=== PATIENT | male | born 1960 | race Caucasian/White ===

== ENCOUNTER 2017-07-13 18:59 | Inpatient (IN) | payer MEDICARE, OTHER ==
--- NOTE | 2017-07-13 20:08 | C.PDOC ---
History Of Present Illness 56 y/o M c PMHx back pain and multiple surgeries p/w jaundice x 1 day. Patient notes he has been feeling weak for a few days, now with itchy and yellow skin x 1 day. Denies fever, chills, abdominal pain, vomiting, diarrhea. Denies significant acetaminophen use, alcohol use, recent travel. Time Seen by Provider: 07/13/17 19:50 Chief Complaint (Nursing): Weakness/Neurological Deficit Past Medical History Vital Signs: Last Vital Signs Temp 98.3 F 07/13/17 19:07 Pulse 129 H 07/13/17 19:07 Resp 18 07/13/17 19:07 BP 125/95 H 07/13/17 19:07 Pulse Ox 98 07/13/17 20:08 Family History: States: No Known Family Hx - Social History Hx Alcohol Use: No Hx Substance Use: Yes - Immunization History Hx Tetanus Toxoid Vaccination: No Hx Influenza Vaccination: No Hx Pneumococcal Vaccination: No Review Of Systems Except As Marked, All Systems Reviewed And Found Negative. Constitutional: Negative for: Fever Gastrointestinal: Negative for: Abdominal Pain Physical Exam - Physical Exam Additional Physical Exam Comments: Constitutional: No acute distress. Head: Normocephalic. Atraumatic. Eyes: PERRL. Scleral icterus. ENT: Moist mucous membranes. Neck: Supple. Cardiovascular: Regular rate at bedside. Radial pulses 2+ bilaterally. Chest: No tenderness. Respiratory: Clear to auscultation bilaterally. GI: Soft. Nontender. Nondistended. Back: No CVA tenderness. Musculoskeletal: No tenderness or swelling of extremities. Skin: Jaundiced. Neurologic: Alert, no focal deficit. ED Course And Treatment - Laboratory Results Result Diagrams: 07/13/17 20:55 07/13/17 20:53 O2 Sat by Pulse Oximetry: 98 Medical Decision Making Medical Decision Making: EKG NSR 90 bpm, no ST/T wave changes. CXR no acute disease. FINDINGS: Lower thorax: No acute findings. ABDOMEN: Liver: Small simple cysts present in the patient's liver. Gallbladder and bile ducts: The gallbladder is contracted but otherwise normal. Pancreas: Unremarkable. No mass. No ductal dilation. Spleen: Unremarkable. No splenomegaly. Adrenals: Unremarkable. No mass. Kidneys and ureters: A simple cyst is identified in the patient's left kidney. Kidneys otherwise show no significant abnormalities. No hydronephrosis Stomach and bowel: Bowel loops appear within normal limits, no signs of wall thickening, mucosal edema, or bowel distention. Moderate amount of formed fecal material is seen within the large bowel loops which may be associated with constipation. Appendix: A normal appendix seen in the right lower quadrant. PELVIS: Bladder: Unremarkable. No mass. Reproductive: Unremarkable as visualized. ABDOMEN and PELVIS: Intraperitoneal space: Unremarkable. No free air. No significant fluid collection. Bones/joints: Surgical changes are incidentally noted in the lower lumbar spine. No acute fracture. No dislocation. Soft tissues: Bilateral very small fat-containing inguinal hernias are present. Vasculature: The aorta demonstrates moderate atherosclerotic calcification. No abdominal aortic aneurysm. Lymph nodes: Unremarkable. No enlarged lymph nodes. IMPRESSION: No evidence for bowel herniation, bowel obstruction, colitis, appendicitis or diverticulitis. No gross ureteral stone or obstructive uropathy is visualized. Small simple cyst of left kidney as described. Benign simple hepatic cysts. Postsurgical changes of the lumbar spine. Dr. Trivedi accepts patient to his service and recommends Dr. Chase for GI consultation. Disposition Discussed With : Gloria Trivedi Doctor Will See Patient In The: Hospital - Disposition Disposition: HOSPITALIZED Disposition Time: 22:36 Condition: FAIR Forms: [facility] [employer] [facility] (Bulgarian) - Clinical Impression Clinical Impression: Hyperbilirubinemia
[2017-07-13 21:03] LABS: BASO # 0.1 K/uL (0.0-0.2); BASO % 0.8 % (0.0-2.0); EOS % 10.4 % (0.0-4.0); HEMATOCRIT 44.2 % (35.0-51.0); LYMPH # 1.6 K/uL (1.0-4.3); LYMPH % 15.6 % (20.0-40.0); MEAN CELL VOLUME 94.1 fL (80.0-94.0); MEAN CORPUSCULAR HEMOGLOBIN 32.2 pg (27.0-31.0); MEAN CORPUSCULAR HGB CONC 34.2 g/dL (33.0-37.0); MONO % 10.3 % (0.0-10.0); NRBC % 0.2 % (0.0-2.0); RED CELL DISTRIBUTION WIDTH 14.1 % (11.5-14.5); WHITE BLOOD COUNT 10.1 K/uL (4.8-10.8)
[2017-07-13 21:11] LABS: RBC URINE 1 /hpf (0-3); URINE BACTERIA RARE (<OCC); URINE BILIRUBIN 2+ (NEGATIVE); URINE BLOOD NEGATIVE (NEGATIVE); URINE COLOR Amber (YELLOW); URINE GLUCOSE (UA) NORMAL (Normal); URINE KETONE TRACE mg/dL (NEGATIVE); URINE LEUKOCYTE ESTERASE NEG Leu/uL (Negative); URINE PROTEIN NEGATIVE (NEGATIVE); WBC URINE 2 /hpf (0-5)
[2017-07-13 21:12] LABS: CHLORIDE 102 mmol/L (98-107); POTASSIUM 4.1 mmol/L (3.6-5.2); SODIUM 139 mmol/L (132-148)
[2017-07-13 21:14] LABS: ALB/GLOB RATIO 1.1 (1.0-2.1); BILIRUBIN,DIRECT 6.9 mg/dL (0.0-0.4); BILIRUBIN,TOTAL 8.3 mg/dL (0.2-1.3); CARBON DIOXIDE 23 mmol/L (22-30); GFR AFRICAN-AMERICAN > 60; TOTAL PROTEIN 8.2 g/dL (6.3-8.3)
[2017-07-13 21:15] LABS: ALKALINE PHOSPHATASE 468 U/L (38-126); ALT/SGPT 546 U/L (21-72); AST/SGOT 284 U/L (17-59); BLOOD UREA NITROGEN 8 mg/dL (9-20); CALCIUM 9.5 mg/dl (8.6-10.4); GLUCOSE,RANDOM 105 mg/dL (75-110)
[2017-07-13] MEDS ORDERED: Iohexol 300 100 ML IJ ONE (21:36)
[2017-07-14] MEDS: Sodium Chloride 0.9% 1,000 ML IV SCH ×2 (00:51→16:24)
--- NOTE | 2017-07-14 08:05 | RAD ---
HISTORY: jaundice COMPARISON: No prior. TECHNIQUE: Chest PA and lateral FINDINGS: LUNGS: No active pulmonary disease. PLEURA: No significant pleural effusion identified. No pneumothorax apparent. CARDIOVASCULAR: Normal. OSSEOUS STRUCTURES: No significant abnormalities. VISUALIZED UPPER ABDOMEN: Normal. OTHER FINDINGS: None. IMPRESSION: No acute cardiopulmonary disease identified.
--- NOTE | 2017-07-14 08:56 | CT ---
PROCEDURE: CT Abdomen and Pelvis with contrast HISTORY: jaundice COMPARISON: None available. TECHNIQUE: Contrast dose: 100 mL Omnipaque 300 Radiation dose: Total exam DLP = 582.11 mGy-cm. This CT exam was performed using one or more of the following dose reduction techniques: Automated exposure control, adjustment of the mA and/or kV according to patient size, and/or use of iterative reconstruction technique. FINDINGS: LOWER THORAX: No visible consolidation, pleural effusion, or pneumothorax. LIVER: Numerous too small to characterize hepatic hypodensities ; statistically likely cysts or hemangiomas. 13 mm hypodense lesion with in the anterior right hepatic lobe, indeterminate. GALLBLADDER AND BILE DUCTS: Contracted gallbladder appears otherwise unremarkable. PANCREAS: Unremarkable. SPLEEN: Unremarkable. ADRENALS: Unremarkable. KIDNEYS AND URETERS: The kidneys enhance symmetrically. No hydronephrosis or obstructing calculus identified. 10 mm hypodense lesion within the left upper pole, likely cyst. VASCULATURE: Moderate atherosclerotic calcifications of the aorta. No aortic aneurysm. BOWEL: Stomach is nondistended. Lack of oral contrast limits evaluation for bowel pathology. Bowel loops appear within normal limits of caliber without evidence of obstruction. Moderate constipation. APPENDIX: The appendix appears within normal limits of caliber. No secondary signs of acute appendicitis. PERITONEUM: No significant free fluid. No definite free air. LYMPH NODES: Retroperitoneal adenopathy measuring up to 12 mm in short axis. BLADDER: Under distended urinary bladder limits evaluation. REPRODUCTIVE: Unremarkable. BONES: Postsurgical changes with evidence of anterior posterior fusion of the lower lumbar spine. OTHER FINDINGS: Small bilateral fat containing inguinal hernias. Tiny fat containing umbilical hernia. IMPRESSION: 13 mm hypodense lesion within the anterior right hepatic lobe, indeterminate. Dedicated cross-sectional imaging may be considered for further evaluation if indicated. Numerous additional too small to characterize hepatic hypodensities, statistically likely cysts or hemangiomas. Hepatic steatosis. 10 mm hypodense lesion within the left upper pole, likely cyst. Retroperitoneal adenopathy measuring up to 12 mm in short axis. Moderate constipation. Small bilateral fat containing inguinal hernias. Tiny fat containing umbilical hernia. Additional findings as above. Preliminary impression was provided by virtual radiologic. Study has been marked for PA review.
--- NOTE | 2017-07-14 09:50 | US ---
HISTORY: jaundice, eval for gallstones, cbd, liver COMPARISON: CT abdomen and pelvis with contrast performed 07/13/17 TECHNIQUE: Sonographic evaluation of the right upper quadrant of the abdomen. FINDINGS: LIVER: Measures 18.1 cm in length. Echogenic liver may be seen in setting of hepatic parenchymal disease or fatty infiltration. At least 3 hepatic anechoic lesions compatible with cysts within the liver (2 in the right hepatic lobe and 1 in the left hepatic lobe). The 2 cysts identified within the right hepatic lobe appears septated and measure maximally approximately 1.6 cm and 1.1 cm. Left hepatic lobe cyst measures approximately 1 cm. The main portal vein appears patent with normal directional flow. No intrahepatic bile duct dilatation. GALLBLADDER: No gallstones. No gallbladder wall thickening or pericholecystic edema. Negative sonographic Fermin's sign as assessed by the mechanical engineering officer. COMMON BILE DUCT: Measures 6 mm. PANCREAS: Not well-visualized. RIGHT KIDNEY: Measures 10.7 x 4.0 x 4.5 cm. No obstructing calculus or hydronephrosis. AORTA: Limited visualization appears grossly unremarkable. IVC: Limited visualization appears grossly unremarkable. OTHER FINDINGS: None . IMPRESSION: Echogenic liver may be seen in setting of hepatic parenchymal disease or fatty infiltration. Evidence of 3 hepatic cysts, 2 within the right lobe which appear septated.
--- NOTE | 2017-07-14 10:38 | CP.PCM.CON ---
History of Present Illness - History of Present Illness History of Present Illness: Patient is a 56 year old male with past medical history of chronic back pain, who presents to the ED for "itchy yellow" skin for 3 days. Patient reports "having a cold" 3 weeks ago, was treated for a URI with amoxicillin. He reports he went back to the walk-in clinic because the antibiotics did not work, therefore they gave him more medication. Since Monday, has noticed his skin was yellow and itchy. He has felt generalized weakness and had night sweats for the past few weeks. He also notes having "blood orange" urine for 3-4 days and sims stool yesterday. Patient states he has had 1 previous episode of "yellow skin about 15 years ago". Patient was consulted for hyperbilirubinemia. In the ED, total, direct bilirubin, AST and ALT were found to be elevated. Patient denies having chest pain, abdominal pain, nausea, vomiting, fevers, and headaches. PMD: denies PMHx: chronic back pain PSHx: Back surgery, 1997, 2008, 2009 FamHx: unknown. orphan SocHx: tobacco use: former smoker (1/2ppd x20 yrs); social alcohol use; denies drug use; , lives with Allergies: NKDA Medications: denies Review of Systems - Constitutional Constitutional: Lethargy, Night Sweats, Weakness. absent: Fever, Headache - EENT Eyes: absent: Change in Vision Ears: absent: Dizziness - Cardiovascular Cardiovascular: absent: Chest Pain, Dyspnea, Edema, Lightheadedness - Respiratory Respiratory: absent: Dyspnea - Gastrointestinal Gastrointestinal: absent: Abdominal Pain, Constipation, Diarrhea, Nausea, Vomiting Additional comments: 1 episode of "sims stool" - Genitourinary Genitourinary: Hematuria. absent: Dysuria - Musculoskeletal Musculoskeletal: Back Pain (Chronic) - Integumentary Integumentary: Pruritus, Jaundice - Neurological Neurological: Weakness. absent: Headaches Past Patient History - Past Medical History & Family History Past Medical History?: Yes - Past Social History Smoking Status: Former Smoker - CARDIAC Hx Cardiac Disorders: No - PULMONARY Hx Respiratory Disorders: No - NEUROLOGICAL Hx Neurological Disorder: No - HEENT Hx HEENT Problems: No - RENAL Hx Chronic Kidney Disease: No - ENDOCRINE/METABOLIC Hx Endocrine Disorders: No - HEMATOLOGICAL/ONCOLOGICAL Hx Blood Disorders: No - INTEGUMENTARY Hx Dermatological Problems: No - MUSCULOSKELETAL/RHEUMATOLOGICAL Hx Falls: No - GASTROINTESTINAL Hx Gastrointestinal Disorders: No - GENITOURINARY/GYNECOLOGICAL Hx Genitourinary Disorders: No - PSYCHIATRIC Hx Substance Use: Yes (marijuana) - SURGICAL HISTORY Hx Surgeries: Yes Other/Comment: Back surgeries-multiple - ANESTHESIA Hx Anesthesia: Yes Hx Anesthesia Reactions: No Hx Malignant Hyperthermia: No Has any member of the family had a problem w/ anesthesia?: No Meds Allergies/Adverse Reactions: Allergies Allergy/AdvReac Type Severity Reaction Status Date / Time No Known Allergies Allergy Verified 07/13/17 19:11 - Medications Medications: Current Medications Sodium Chloride (Sodium Chloride 0.9%) 1,000 mls @ 75 mls/hr IV .[id number] GISELL Last Admin: 07/14/17 00:51 Dose: 75 mls/hr Pneumococcal Polyvalent Vaccine (Pneumovax 23 Vaccine) 0.5 ml IM .ONCE ONE Stop: 07/16/17 10:01 Physical Exam - Head Exam Head Exam: ATRAUMATIC, NORMOCEPHALIC - Eye Exam Eye Exam: EOMI, Scleral icterus - ENT Exam ENT Exam: Mucous Membranes Moist - Respiratory Exam Respiratory Exam: Clear to Auscultation Bilateral. absent: Rales, Rhonchi, Wheezes - Cardiovascular Exam Cardiovascular Exam: REGULAR RHYTHM, +S1, +S2 - GI/Abdominal Exam GI & Abdominal Exam: Normal Bowel Sounds, Soft. absent: Distended, Mass, Tenderness - Extremities Exam Extremities exam: Negative for: pedal edema, tenderness - Neurological Exam Neurological exam: Alert, Oriented x3 - Psychiatric Exam Psychiatric exam: Normal Affect, Normal Mood - Skin Skin Exam: Dry, Intact, Warm Additional comments: Jaundiced Results - Vital Signs Recent Vital Signs: Last Vital Signs Temp 97.5 F L 07/14/17 08:00 Pulse 75 07/14/17 08:00 Resp 20 07/14/17 08:00 BP 132/81 07/14/17 08:00 Pulse Ox 97 07/14/17 08:00 - Labs Result Diagrams: 07/13/17 20:55 07/13/17 20:53 Assessment & Plan - Assessment and Plan (Free Text) Assessment: 56 year old male with past medical history of chronic back pain, consulted for hyperbilirubinemia. - No surgical intervention at this time. Will follow peripherally. - Jaundice possibly secondary to hepatitis, unknown etiology; ?viral vs. autoimmune. - Follow up labs. - Continue management as per GI.
--- NOTE | 2017-07-14 10:49 | CP.PCM.CON ---
<Marilyn Saldivar - Last Filed: 07/14/17 11:33> History of Present Illness - History of Present Illness History of Present Illness: GI Fellow PGY4 Consult Note This is a 56yM with a pmhx of chronic back pain, who presents to the ED for itchy yellow skin for two days. Patient reports having a URI 3 weeks ago and was treated with multiple medications including amoxicillin. He reports he will try to get the names of the other medications from his and let us know. Pt reports feeling weak and had night sweats for 4 days having to change his shirt and bedsheets multiple times. He also notes having blood orange urine for 3-4 days and sims stool yesterday. Pt denies prior history of jaundice and no hx of hepatitis, recent travel or sick contacts. Pt denies any alcohol abuse and does not know family history. Pt reports getting tattoos 30yrs ago from a shop with clean needles. Pt denies abdominal pain, nausea, vomiting, fevers, or chills. ROS: A 12pt ROS was obtained and was negative except as above PmHx: Back pain/spinal stenosis PsHx: Back surgery, 1997, 2008, 2009 FHx: unknown. orphan SHx: former smoker 6 cigarets for 20 yrs quit 10yrs ago; social alcohol use; denies drug use Past Patient History - Past Medical History & Family History Past Medical History?: Yes - Past Social History Smoking Status: Former Smoker - CARDIAC Hx Cardiac Disorders: No - PULMONARY Hx Respiratory Disorders: No - NEUROLOGICAL Hx Neurological Disorder: No - HEENT Hx HEENT Problems: No - RENAL Hx Chronic Kidney Disease: No - ENDOCRINE/METABOLIC Hx Endocrine Disorders: No - HEMATOLOGICAL/ONCOLOGICAL Hx Blood Disorders: No - INTEGUMENTARY Hx Dermatological Problems: No - MUSCULOSKELETAL/RHEUMATOLOGICAL Hx Falls: No - GASTROINTESTINAL Hx Gastrointestinal Disorders: No - GENITOURINARY/GYNECOLOGICAL Hx Genitourinary Disorders: No - PSYCHIATRIC Hx Substance Use: Yes (marijuana) - SURGICAL HISTORY Hx Surgeries: Yes Other/Comment: Back surgeries-multiple - ANESTHESIA Hx Anesthesia: Yes Hx Anesthesia Reactions: No Hx Malignant Hyperthermia: No Has any member of the family had a problem w/ anesthesia?: No Meds Allergies/Adverse Reactions: Allergies Allergy/AdvReac Type Severity Reaction Status Date / Time No Known Allergies Allergy Verified 07/13/17 19:11 - Medications Medications: Current Medications Sodium Chloride (Sodium Chloride 0.9%) 1,000 mls @ 75 mls/hr IV .[id number] GISELL Last Admin: 07/14/17 00:51 Dose: 75 mls/hr Pneumococcal Polyvalent Vaccine (Pneumovax 23 Vaccine) 0.5 ml IM .ONCE ONE Stop: 07/16/17 10:01 Physical Exam - Constitutional Appears: No Acute Distress - Head Exam Head Exam: ATRAUMATIC, NORMAL INSPECTION, NORMOCEPHALIC - Eye Exam Eye Exam: EOMI, PERRL, Scleral icterus Pupil Exam: PERRL - ENT Exam ENT Exam: Mucous Membranes Moist Additional comments: Jaundice under the tongue - Neck Exam Neck exam: Positive for: Full Rom, Normal Inspection - Respiratory Exam Respiratory Exam: Clear to Auscultation Bilateral, NORMAL BREATHING PATTERN - Cardiovascular Exam Cardiovascular Exam: RRR, +S1, +S2 - GI/Abdominal Exam GI & Abdominal Exam: Normal Bowel Sounds, Soft. absent: Distended, Guarding, Organomegaly, Rebound, Rigid, Tenderness - Rectal Exam Rectal Exam: Deferred - Extremities Exam Extremities exam: Positive for: full ROM, normal inspection - Back Exam Back exam: NORMAL INSPECTION - Neurological Exam Neurological exam: Alert, Normal Gait, Oriented x3 - Psychiatric Exam Psychiatric exam: Normal Affect, Normal Mood - Skin Skin Exam: Dry, Intact, Warm Additional comments: Jaundice Results - Vital Signs Recent Vital Signs: Last Vital Signs Temp 97.5 F L 07/14/17 08:00 Pulse 75 07/14/17 08:00 Resp 20 07/14/17 08:00 BP 132/81 07/14/17 08:00 Pulse Ox 97 07/14/17 08:00 - Labs Result Diagrams: 07/13/17 20:55 07/13/17 20:53 Assessment & Plan - Assessment and Plan (Free Text) Assessment: This is a 56yM pw painless jaundice for 2 days. 1. Painless Jaundice 2. Hyperbilirubinemia 3. Transaminitis Plan: -Continue supportive care with IVF hydration -Will order STAT Abdominal US to r/o cholilithiasis, choledocohlithiasis, evaluate CBD -Order further work up for transaminitis with autoimmune labs, hepatitis panel, acetaminophen level, and iron studies -Abnormal LFTs may also be from medication side effects causing cholestasis, waiting on pt's medication list from recent URI -NPO -Plan for EUS with possible ERCP today -Will continue to follow pt closely and make further recommendations based on endoscopic evaluation <Gregorio Calix - Last Filed: 07/14/17 12:29> Meds - Medications Medications: Current Medications Sodium Chloride (Sodium Chloride 0.9%) 1,000 mls @ 75 mls/hr IV .[id number] GISELL Last Admin: 07/14/17 00:51 Dose: 75 mls/hr Pneumococcal Polyvalent Vaccine (Pneumovax 23 Vaccine) 0.5 ml IM .ONCE ONE Stop: 07/16/17 10:01 Results - Vital Signs Recent Vital Signs: Last Vital Signs Temp 97.5 F L 07/14/17 08:00 Pulse 75 07/14/17 08:00 Resp 20 07/14/17 08:00 BP 132/81 07/14/17 08:00 Pulse Ox 97 07/14/17 08:00 - Labs Result Diagrams: 07/14/17 11:34 07/14/17 11:34 Labs: Laboratory Results - last 24 hr 07/14/17 07/14/17 07/14/17 11:34 11:34 11:34 WBC 7.7 RBC 4.51 Hgb 14.7 Hct 42.7 MCV 94.6 H MCH 32.6 H MCHC 34.5 RDW 14.1 Plt Count 397 MPV 8.2 PT INR Sodium 140 Potassium 4.0 Chloride 104 Carbon Dioxide 23 Anion Gap 17 BUN 8 L Creatinine 0.8 Est GFR ( Amer) > 60 Est GFR (Non-Af Amer) > 60 Random Glucose 103 Calcium 9.4 Iron 168 TIBC 397 % Saturation 42 Total Bilirubin 8.7 H AST 364 H D ALT 548 H Alkaline Phosphatase 500 H Total Protein 7.9 Albumin 4.0 Globulin 3.9 Albumin/Globulin Ratio 1.0 Acetaminophen IgG 07/14/17 07/14/17 07/14/17 11:34 11:34 11:34 WBC RBC Hgb Hct MCV MCH MCHC RDW Plt Count MPV PT 11.2 INR 1.0 Sodium Potassium Chloride Carbon Dioxide Anion Gap BUN Creatinine Est GFR ( Amer) Est GFR (Non-Af Amer) Random Glucose Calcium Iron TIBC % Saturation 40 Total Bilirubin AST ALT Alkaline Phosphatase Total Protein Albumin Globulin Albumin/Globulin Ratio Acetaminophen IgG 939.3 07/14/17 11:34 WBC RBC Hgb Hct MCV MCH MCHC RDW Plt Count MPV PT INR Sodium Potassium Chloride Carbon Dioxide Anion Gap BUN Creatinine Est GFR ( Amer) Est GFR (Non-Af Amer) Random Glucose Calcium Iron TIBC % Saturation Total Bilirubin AST ALT Alkaline Phosphatase Total Protein Albumin Globulin Albumin/Globulin Ratio Acetaminophen < 10.0 L IgG Attending/Attestation - Attestation I have personally seen and examined this patient.: Yes I have fully participated in the care of the patient.: Yes I have reviewed all pertinent clinical information: Yes Notes (Text): 07/14/17 12:28 56 year old male admitted with jaundice and pruritis, found to have cholestatis pattent of elevated lfts. 1. Jaundice 2. Cholestasis Plan: -US/CT abdomen reviewed -no CBD dilatoin/stones/panc mass -recommend EUS today +/- ERCP if indicated -eval for chronic liver diseases as above including viral / autoimmune / PBC -possibly related to recent antibiotic use
[2017-07-14 11:46] LABS: HEMATOCRIT 42.7 % (35.0-51.0); MEAN CELL VOLUME 94.6 fL (80.0-94.0); MEAN CORPUSCULAR HEMOGLOBIN 32.6 pg (27.0-31.0); MEAN CORPUSCULAR HGB CONC 34.5 g/dL (33.0-37.0); MEAN PLATELET VOLUME 8.2 fL (7.2-11.7); RED CELL DISTRIBUTION WIDTH 14.1 % (11.5-14.5); WHITE BLOOD COUNT 7.7 K/uL (4.8-10.8)
[2017-07-14 11:58] LABS: CHLORIDE 104 mmol/L (98-107)
[2017-07-14 11:59] LABS: SODIUM 140 mmol/L (132-148)
[2017-07-14 12:02] LABS: ALKALINE PHOSPHATASE 500 U/L (38-126); ALT/SGPT 548 U/L (21-72); AST/SGOT 364 U/L (17-59); BILIRUBIN,TOTAL 8.7 mg/dL (0.2-1.3); BLOOD UREA NITROGEN 8 mg/dL (9-20); CALCIUM 9.4 mg/dl (8.6-10.4); CARBON DIOXIDE 23 mmol/L (22-30); GFR AFRICAN-AMERICAN > 60; GLUCOSE,RANDOM 103 mg/dL (75-110); TOTAL PROTEIN 7.9 g/dL (6.3-8.3)
[2017-07-14 12:04] LABS: IRON 168 ug/dL (49-181)
[2017-07-14] MEDS ORDERED: Ketamine 50 mg/ml Inj (10 ml) ONE (12:52)
[2017-07-14] MEDS ORDERED: Propofol 10 mg/ml Inj (20 ML) ONE (12:53)
[2017-07-14] MEDS ORDERED: Midazolam 2 MG/2 ML VIAL ONE (12:53)
[2017-07-14] MEDS ORDERED: Lactated Ringer's 500 ML IV SCH (13:00)
[2017-07-14] MEDS ORDERED: Iodixanol 320 MG/ML 100 ML BOTTLE IV ONE (15:01)
--- NOTE | 2017-07-14 16:20 | CT ---
PROCEDURE: CT Chest with contrast HISTORY: r/o lymphoma COMPARISON: None. TECHNIQUE: Contiguous axial images were obtained through the chest with intravenous contrast enhancement. Sagittal and coronal reconstructions were performed. IV contrast: 100 mL Visipaque 320 Radiation dose (DLP): 401.04 mGy-cm. This CT exam was performed using one or more of the following dose reduction techniques: Automated exposure control, adjustment of the mA and/or kV according to patient size, and/or use of iterative reconstruction technique. FINDINGS: LUNGS: Clear lungs. Visualized airway clear. MEDIASTINUM: Unremarkable thoracic aorta. No aneurysm or dissection. Normal sized heart. Main pulmonary artery unremarkable. No vascular congestion. No lymphadenopathy. PLEURA: No pleural fluid. No pneumothorax. BONES: No fracture. No destructive lesion. UPPER ABDOMEN: Enlarged precaval retroperitoneal lymph node measures 1.9 cm in short axis. Additional rachna hepatis nodes are identified. Please see report of abdominal/ pelvic CT examination of the previous day. Nonspecific small hypodensities in both lobes of the liver, largest 1.6 cm. Left upper pole renal cortical cyst. . OTHER FINDINGS: None. IMPRESSION: No evidence of mediastinal or hilar lymphadenopathy. Retroperitoneal and rachna hepatis lymphadenopathy is noted. Please see report of abdominal/ pelvic CT examination of the previous day.
--- NOTE | 2017-07-14 18:30 | CP.PCM.HP ---
Past Patient History - Past Medical History & Family History Past Medical History?: Yes - Past Social History Smoking Status: Former Smoker - CARDIAC Hx Cardiac Disorders: No - PULMONARY Hx Respiratory Disorders: No - NEUROLOGICAL Hx Neurological Disorder: No - HEENT Hx HEENT Problems: No - RENAL Hx Chronic Kidney Disease: No - ENDOCRINE/METABOLIC Hx Endocrine Disorders: No - HEMATOLOGICAL/ONCOLOGICAL Hx Blood Disorders: No - INTEGUMENTARY Hx Dermatological Problems: No - MUSCULOSKELETAL/RHEUMATOLOGICAL Hx Falls: No - GASTROINTESTINAL Hx Gastrointestinal Disorders: No - GENITOURINARY/GYNECOLOGICAL Hx Genitourinary Disorders: No - PSYCHIATRIC Hx Substance Use: Yes (marijuana) - SURGICAL HISTORY Hx Surgeries: Yes Other/Comment: Back surgeries-multiple - ANESTHESIA Hx Anesthesia: Yes Hx Anesthesia Reactions: No Hx Malignant Hyperthermia: No Has any member of the family had a problem w/ anesthesia?: No Meds Allergies/Adverse Reactions: Allergies Allergy/AdvReac Type Severity Reaction Status Date / Time No Known Allergies Allergy Verified 07/13/17 19:11 Physical Exam - Constitutional Appears: Well - Head Exam Head Exam: ATRAUMATIC, NORMAL INSPECTION, NORMOCEPHALIC - Eye Exam Eye Exam: EOMI, Normal appearance, PERRL Pupil Exam: NORMAL ACCOMODATION, PERRL - ENT Exam ENT Exam: Mucous Membranes Moist, Normal Exam - Neck Exam Neck exam: Positive for: Normal Inspection - Respiratory Exam Respiratory Exam: Decreased Breath Sounds - Cardiovascular Exam Cardiovascular Exam: REGULAR RHYTHM, +S1, +S2 - GI/Abdominal Exam GI & Abdominal Exam: Diminished Bowel Sounds, Soft - Rectal Exam Rectal Exam: Deferred Results - Vital Signs Recent Vital Signs: Last Vital Signs Temp 97.7 F 07/14/17 16:31 Pulse 79 07/14/17 16:31 Resp 20 07/14/17 16:31 BP 123/67 07/14/17 16:31 Pulse Ox 96 07/14/17 16:31 - Labs Result Diagrams: 07/14/17 11:34 07/14/17 11:34 Labs: Laboratory Results - last 24 hr 07/14/17 07/14/17 07/14/17 11:34 11:34 11:34 WBC 7.7 RBC 4.51 Hgb 14.7 Hct 42.7 MCV 94.6 H MCH 32.6 H MCHC 34.5 RDW 14.1 Plt Count 397 MPV 8.2 PT INR Sodium 140 Potassium 4.0 Chloride 104 Carbon Dioxide 23 Anion Gap 17 BUN 8 L Creatinine 0.8 Est GFR ( Amer) > 60 Est GFR (Non-Af Amer) > 60 Random Glucose 103 Calcium 9.4 Iron 168 TIBC 397 % Saturation 42 Total Bilirubin 8.7 H AST 364 H D ALT 548 H Alkaline Phosphatase 500 H Total Protein 7.9 Albumin 4.0 Globulin 3.9 Albumin/Globulin Ratio 1.0 Acetaminophen IgG Hepatitis A IgM Ab Hep Bs Antigen Hep B Core IgM Ab Hepatitis C Antibody 07/14/17 07/14/17 07/14/17 11:34 11:34 11:34 WBC RBC Hgb Hct MCV MCH MCHC RDW Plt Count MPV PT 11.2 INR 1.0 Sodium Potassium Chloride Carbon Dioxide Anion Gap BUN Creatinine Est GFR ( Amer) Est GFR (Non-Af Amer) Random Glucose Calcium Iron TIBC % Saturation 40 Total Bilirubin AST ALT Alkaline Phosphatase Total Protein Albumin Globulin Albumin/Globulin Ratio Acetaminophen IgG 939.3 Hepatitis A IgM Ab Hep Bs Antigen Hep B Core IgM Ab Hepatitis C Antibody 07/14/17 07/14/17 11:34 11:34 WBC RBC Hgb Hct MCV MCH MCHC RDW Plt Count MPV PT INR Sodium Potassium Chloride Carbon Dioxide Anion Gap BUN Creatinine Est GFR ( Amer) Est GFR (Non-Af Amer) Random Glucose Calcium Iron TIBC % Saturation Total Bilirubin AST ALT Alkaline Phosphatase Total Protein Albumin Globulin Albumin/Globulin Ratio Acetaminophen < 10.0 L IgG Hepatitis A IgM Ab Negative Hep Bs Antigen Negative Hep B Core IgM Ab Negative Hepatitis C Antibody Negative
--- NOTE | 2017-07-14 19:12 | CARD ---
APPROVED REPORT EKG Measurement Heart [id number] <Conclusion> Normal sinus rhythm Normal ECG
[2017-07-14] MEDS ORDERED: Lactated Ringer's 1,000 ML IV SCH (21:19)
[2017-07-14] MEDS: Lactated Ringer's 1,000 ML IV SCH (21:52)
[2017-07-15 08:39] LABS: HEMATOCRIT 40.9 % (35.0-51.0); MEAN CELL VOLUME 94.1 fL (80.0-94.0); MEAN PLATELET VOLUME 8.2 fL (7.2-11.7); RED CELL DISTRIBUTION WIDTH 14.4 % (11.5-14.5); WHITE BLOOD COUNT 9.5 K/uL (4.8-10.8)
[2017-07-15 08:40] LABS: CHLORIDE 103 mmol/L (98-107); POTASSIUM 4.2 mmol/L (3.6-5.2); SODIUM 140 mmol/L (132-148)
[2017-07-15 08:42] LABS: BILIRUBIN,TOTAL 9.3 mg/dL (0.2-1.3); CARBON DIOXIDE 25 mmol/L (22-30); GFR AFRICAN-AMERICAN > 60
[2017-07-15 08:43] LABS: ALKALINE PHOSPHATASE 486 U/L (38-126); ALT/SGPT 583 U/L (21-72); AST/SGOT 526 U/L (17-59); BLOOD UREA NITROGEN 8 mg/dL (9-20); CALCIUM 9.3 mg/dl (8.6-10.4); GLUCOSE,RANDOM 100 mg/dL (75-110); TOTAL PROTEIN 7.7 g/dL (6.3-8.3)
--- NOTE | 2017-07-15 10:48 | CP.PCM.PN ---
Subjective - Date & Time of Evaluation Date of Evaluation: 07/15/17 Time of Evaluation: 10:43 - Subjective Subjective: Patient seen and examined. Resting in bed comfortably, no acute events overnight. He denies abdominal pain, nausea, vomiting, diarrhea, fever/chills. Tolerating PO diet without difficulty. He endorses one reeves colored bowel movement this morning. Review of vitals from today are normal. 12 point review of systems performed, negative aside from mentioned above. Objective - Vital Signs/Intake and Output Vital Signs (last 24 hours): Temp Pulse Resp BP Pulse Ox 99 F 81 20 104/70 97 07/15/17 00:00 07/15/17 00:00 07/15/17 00:00 07/15/17 00:00 07/15/17 00:00 Intake and Output: 07/15/17 07/15/17 06:59 18:59 Intake Total 1600 Output Total 400 Balance 1200 - Medications Medications: Current Medications Lactated Ringer's (Lactated Ringer's) 1,000 mls @ 75 mls/hr IV .[id number] GISELL Last Admin: 07/14/17 21:52 Dose: 75 mls/hr Pneumococcal Polyvalent Vaccine (Pneumovax 23 Vaccine) 0.5 ml IM .ONCE ONE Stop: 07/16/17 10:01 - Labs Labs: 07/15/17 08:23 07/15/17 08:23 PT 11.2 SECONDS (9.7-12.2) 07/14/17 11:34 INR 1.0 07/14/17 11:34 APTT 35 SECONDS (21-34) H 07/13/17 20:53 - Constitutional Appears: Non-toxic, No Acute Distress - Head Exam Head Exam: NORMAL INSPECTION - Eye Exam Eye Exam: EOMI, Scleral icterus - ENT Exam ENT Exam: Mucous Membranes Moist - Respiratory Exam Respiratory Exam: Clear to Ausculation Bilateral - Cardiovascular Exam Cardiovascular Exam: REGULAR RHYTHM, +S1, +S2 - GI/Abdominal Exam GI & Abdominal Exam: Soft, Normal Bowel Sounds Additional comments: non tender to palpation in four quadrants - Extremities Exam Extremities Exam: Normal Inspection - Skin Additional comments: +jaundice Assessment and Plan - Assessment and Plan (Free Text) Assessment: Painless jaundice Pruritis s/p EUS yesterday showing no focal hepatic or biliary abnormalities, normal caliber CBD, normal pancreas/gallbladder Plan: - Diet as tolerated - Continue to monitor LFTs, INR - Awaiting autoimmune panel - Would also obtain iron markers (ferritin, transferrin saturation), alpha1- antitrypsin, EBV for further evaluation - Given presence of night sweats and retroperitoneal/rachna-hepatis lymphadenopathy on imaging, lymphoma or infiltrative disease of liver must also be considered in differential. Would suggest IR guided biopsy of lymph node or liver for further diagnosis. DILI should also be considered given recent history of multiple antibiotic therapy. - Continue with supportive care and will monitor patient clinical course
[2017-07-15] MEDS: Lactated Ringer's 1,000 ML IV SCH (11:13)
--- NOTE | 2017-07-15 15:07 | CP.PCM.PN ---
Subjective - Date & Time of Evaluation Date of Evaluation: 07/15/17 Time of Evaluation: 07:40 - Subjective Subjective: clinically same Objective - Vital Signs/Intake and Output Vital Signs (last 24 hours): Temp Pulse Resp BP Pulse Ox 98 F 81 20 100/70 98 07/15/17 08:00 07/15/17 08:00 07/15/17 08:00 07/15/17 08:00 07/15/17 08:00 Intake and Output: 07/15/17 07/15/17 06:59 18:59 Intake Total 1600 Output Total 400 Balance 1200 - Medications Medications: Current Medications Lactated Ringer's (Lactated Ringer's) 1,000 mls @ 75 mls/hr IV .[id number] GISELL Last Admin: 07/15/17 11:13 Dose: 75 mls/hr Pneumococcal Polyvalent Vaccine (Pneumovax 23 Vaccine) 0.5 ml IM .ONCE ONE Stop: 07/16/17 10:01 - Labs Labs: 07/15/17 08:23 07/15/17 08:23 PT 11.2 SECONDS (9.7-12.2) 07/14/17 11:34 INR 1.0 07/14/17 11:34 APTT 35 SECONDS (21-34) H 07/13/17 20:53 - Constitutional Appears: Well - Head Exam Head Exam: ATRAUMATIC, NORMAL INSPECTION, NORMOCEPHALIC - Eye Exam Eye Exam: EOMI, Normal appearance, PERRL Pupil Exam: NORMAL ACCOMODATION, PERRL - ENT Exam ENT Exam: Mucous Membranes Moist, Normal Exam - Neck Exam Neck Exam: Full ROM, Normal Inspection. absent: Lymphadenopathy - Respiratory Exam Respiratory Exam: Decreased Breath Sounds - Cardiovascular Exam Cardiovascular Exam: REGULAR RHYTHM, +S1, +S2 - GI/Abdominal Exam GI & Abdominal Exam: Soft, Diminished Bowel Sounds - Rectal Exam Rectal Exam: Deferred Assessment and Plan - Assessment and Plan (Free Text) Plan: Case seen and discussed with the staff and discussed with the No very high liver enzymes very high bilirubin 9.3 is gradually going up discussed with the patient had endoscopic ultrasound of the biliary tree which revealed possible lymph node and lymphoma status post is seen by surgeon Status post seen by GI Workup with a CAT scan Spoke to the at length and that she wants to take the patient's out to the [facility] and discussed the pros and cons and does not don'ts patient' s has decided she may sign out Patient has a retroperitoneal adenopathy abdominal CT chest CT is very much abnormal discussed with the
[2017-07-16] MEDS: Lactated Ringer's 1,000 ML IV SCH ×2 (01:12→14:19)
--- NOTE | 2017-07-16 09:44 | CP.PCM.PN ---
Subjective - Date & Time of Evaluation Date of Evaluation: 07/16/17 Time of Evaluation: 09:37 - Subjective Subjective: Patient seen and examined, resting comfortably in bed. He complains of ongoing night sweats, had to change his bedsheets twice overnight. He denies abdominal pain, nausea, vomiting, fever/chills. He had one reeves colored bowel movement yesterday. Tolerating PO diet without difficulty. Review of vitals from today are normal. 12 point review of systems performed, negative aside from mentioned above. Objective - Vital Signs/Intake and Output Vital Signs (last 24 hours): Temp Pulse Resp BP Pulse Ox 98.1 F 82 20 106/74 94 L 07/16/17 08:00 07/16/17 08:00 07/16/17 08:00 07/16/17 08:00 07/16/17 08:00 Intake and Output: 07/16/17 07/16/17 06:59 18:59 Intake Total 1500 Balance 1500 - Medications Medications: Current Medications Lactated Ringer's (Lactated Ringer's) 1,000 mls @ 75 mls/hr IV .[id number] GISELL Last Admin: 07/16/17 01:12 Dose: 75 mls/hr Pneumococcal Polyvalent Vaccine (Pneumovax 23 Vaccine) 0.5 ml IM .ONCE ONE Stop: 07/16/17 10:01 - Labs Labs: 07/15/17 08:23 07/15/17 08:23 PT 11.2 SECONDS (9.7-12.2) 07/14/17 11:34 INR 1.0 07/14/17 11:34 APTT 35 SECONDS (21-34) H 07/13/17 20:53 - Constitutional Appears: Non-toxic, No Acute Distress - Head Exam Head Exam: NORMAL INSPECTION - Eye Exam Eye Exam: EOMI, Scleral icterus - ENT Exam ENT Exam: Mucous Membranes Moist - Respiratory Exam Respiratory Exam: Clear to Ausculation Bilateral - Cardiovascular Exam Cardiovascular Exam: REGULAR RHYTHM, +S1, +S2 - GI/Abdominal Exam GI & Abdominal Exam: Soft, Normal Bowel Sounds Additional comments: non tender to palpation in four quadrants - Extremities Exam Extremities Exam: Normal Inspection - Skin Additional comments: +jaundice Assessment and Plan - Assessment and Plan (Free Text) Assessment: Painless jaundice - unclear etiology, s/p EUS without significant abnormalities seen. Differential is broad including lymphoma (given clinical symptoms, retroperitoneal and rachna hepatis lymphadenopathy) vs DILI (recent multiple antibiotic use) vs viral cause vs autoimmune Plan: - Diet as tolerated - Continue to monitor LFTs, INR - Awaiting results of autoimmune, EBV, [id number], etc - AFP normal, ferritin elevated though not suggestive of hemochromatosis - Suggest IR guided lymph node or liver biopsy tomorrow for further assistance with diagnosis, will discuss with Dr. Hernandez - Patient requesting transfer to [facility], in interim will continue to monitor clinical course
[2017-07-16] MEDS ORDERED: Pneumococcal 23-Valent Vaccine IM ONE ×2 (10:00→14:00)
[2017-07-16 11:47] LABS: ALKALINE PHOSPHATASE 465 U/L (38-126); ALT/SGPT 539 U/L (21-72); AST/SGOT 559 U/L (17-59); BILIRUBIN,TOTAL 10.2 mg/dL (0.2-1.3); BLOOD UREA NITROGEN 8 mg/dL (9-20); CALCIUM 9.3 mg/dl (8.6-10.4); CARBON DIOXIDE 26 mmol/L (22-30); CHLORIDE 102 mmol/L (98-107); GFR AFRICAN-AMERICAN > 60; GLUCOSE,RANDOM 93 mg/dL (75-110); POTASSIUM 4.1 mmol/L (3.6-5.2); SODIUM 139 mmol/L (132-148); TOTAL PROTEIN 7.2 g/dL (6.3-8.3)
[2017-07-16 12:47] LABS: LKM-1 Ab (IgG) <=20.0 U (<=20.0)
[2017-07-17] MEDS: Lactated Ringer's 1,000 ML IV SCH (03:55)
[2017-07-17 07:17] LABS: MEAN CELL VOLUME 94.6 fL (80.0-94.0); MEAN CORPUSCULAR HEMOGLOBIN 32.1 pg (27.0-31.0); MEAN PLATELET VOLUME 8.4 fL (7.2-11.7); RED CELL DISTRIBUTION WIDTH 14.7 % (11.5-14.5); WHITE BLOOD COUNT 11.7 K/uL (4.8-10.8)
[2017-07-17 07:46] LABS: CHLORIDE 105 mmol/L (98-107); SODIUM 141 mmol/L (132-148)
[2017-07-17 07:48] LABS: BILIRUBIN,TOTAL 10.2 mg/dL (0.2-1.3); CARBON DIOXIDE 24 mmol/L (22-30); GFR AFRICAN-AMERICAN > 60
[2017-07-17 07:49] LABS: ALKALINE PHOSPHATASE 496 U/L (38-126); ALT/SGPT 645 U/L (21-72); AST/SGOT 642 U/L (17-59); BLOOD UREA NITROGEN 7 mg/dL (9-20); CALCIUM 9.2 mg/dl (8.6-10.4); GLUCOSE,RANDOM 99 mg/dL (75-110); TOTAL PROTEIN 7.7 g/dL (6.3-8.3)
--- NOTE | 2017-07-17 10:14 | CP.PCM.PN ---
<Marilyn Saldivar - Last Filed: 07/17/17 11:41> Subjective - Date & Time of Evaluation Date of Evaluation: 07/17/17 Time of Evaluation: 07:45 - Subjective Subjective: GI Fellow PGY4 Progress Note Patient seen and examined at bedside, resting comfortably in bed and reports ongoing night sweats. He reports feeling better this morning and says his jaundice is improving, urine is not that dark and stool is turning more brown than sims. He denies abdominal pain, nausea, vomiting, fever/chills. Tolerating PO diet without difficulty. ROS: A 12 point review of systems performed and was negative except as mentioned above Objective - Vital Signs/Intake and Output Vital Signs (last 24 hours): Temp Pulse Resp BP Pulse Ox 98.2 F 76 18 138/82 99 07/17/17 00:00 07/17/17 00:00 07/17/17 00:00 07/17/17 00:00 07/17/17 00:00 Intake and Output: 07/17/17 07/17/17 06:59 18:59 Intake Total 1500 Output Total 500 Balance 1000 - Medications Medications: Current Medications Lactated Ringer's (Lactated Ringer's) 1,000 mls @ 75 mls/hr IV .[id number] GISELL Last Admin: 07/17/17 03:55 Dose: 75 mls/hr - Labs Labs: 07/17/17 07:04 07/17/17 07:04 PT 11.7 SECONDS (9.7-12.2) 07/17/17 07:04 INR 1.0 07/17/17 07:04 APTT 35 SECONDS (21-34) H 07/13/17 20:53 - Constitutional Appears: No Acute Distress - Head Exam Head Exam: ATRAUMATIC, NORMAL INSPECTION, NORMOCEPHALIC - Eye Exam Eye Exam: EOMI, PERRL, Scleral icterus Pupil Exam: PERRL - ENT Exam ENT Exam: Mucous Membranes Moist - Neck Exam Neck Exam: Full ROM, Normal Inspection - Respiratory Exam Respiratory Exam: Clear to Ausculation Bilateral, NORMAL BREATHING PATTERN - Cardiovascular Exam Cardiovascular Exam: RRR, +S1, +S2 - GI/Abdominal Exam GI & Abdominal Exam: Soft, Normal Bowel Sounds. absent: Distended, Tenderness, Organomegaly - Rectal Exam Rectal Exam: Deferred - Extremities Exam Extremities Exam: Full ROM, Normal Inspection - Back Exam Back Exam: NORMAL INSPECTION - Neurological Exam Neurological Exam: Alert, Awake, Oriented x3 - Psychiatric Exam Psychiatric exam: Normal Affect, Normal Mood - Skin Skin Exam: Dry, Intact, Warm Additional comments: Jaundice Assessment and Plan - Assessment and Plan (Free Text) Assessment: This is a 56yM pw painless jaundice for 2 days. 1. Painless Jaundice s/p EUS without significant abnormalities seen 2. Hyperbilirubinemia 3. Transaminitis 4. Cholestasis Ddx: lymphoma (clinical symptoms, retroperitoneal and rachna hepatis lymphadenopathy) vs DILI (recent antibiotic use especially amoxicillin) vs viral cause vs autoimmune Plan: -Continue supportive care - Continue to monitor LFTs - Awaiting results of autoimmune and viral workup, hepatitis panel negative - AFP normal, ferritin elevated not suggestive of hemochromatosis - Plan for IR guided liver biopsy today for further assistance with diagnosis - Will continue to follow pt closely <Qamar Rose MD - Last Filed: 07/17/17 12:56> Objective - Vital Signs/Intake and Output Vital Signs (last 24 hours): Temp Pulse Resp BP Pulse Ox 98 F 87 20 136/77 97 07/17/17 10:16 07/17/17 10:16 07/17/17 10:16 07/17/17 10:16 07/17/17 10:16 Intake and Output: 07/17/17 07/17/17 06:59 18:59 Intake Total 1500 Output Total 500 Balance 1000 - Medications Medications: Current Medications Lactated Ringer's (Lactated Ringer's) 1,000 mls @ 75 mls/hr IV .[id number] [facility] Last Admin: 07/17/17 03:55 Dose: 75 mls/hr - Labs Labs: 07/17/17 07:04 07/17/17 07:04 PT 11.7 SECONDS (9.7-12.2) 07/17/17 07:04 INR 1.0 07/17/17 07:04 APTT 35 SECONDS (21-34) H 07/13/17 20:53 Attending/Attestation - Attestation I have personally seen and examined this patient.: Yes I have fully participated in the care of the patient.: Yes I have reviewed all pertinent clinical information, including history, physical exam and plan: Yes Notes (Text): 07/17/17 12:53 Patient seen and examined with GI fellow. This is a 56 yr old M presented with painless jaundice of unclear etiology, s/p EUS without significant abnormalities seen. Differential is broad including lymphoma (given clinical symptoms, retroperitoneal and rachna hepatis lymphadenopathy) vs DILI (recent multiple antibiotic use) vs viral cause vs autoimmune. TB trending upwards with no s/s of acute liver failure. Normal coagulation profile and intact mental status. Hepatitis serologies negative. Will do urine toxicology. Elevated ferritin although transferrin saturation less than 55. IR guided liver biopsy today. Regular diet.
[2017-07-17 10:19] VITALS: RESP 20
[2017-07-17] MEDS ORDERED: Midazolam 2 MG/2 ML VIAL ONE ×2 (11:59→12:00)
[2017-07-17] MEDS ORDERED: Absorbable Gelatin Sponge Size 12-7 ONE (12:17)
--- NOTE | 2017-07-17 12:23 | PCM.SURG1 ---
Surgeon's Initial Post Op Note - Surgeon's Notes Surgeon: Michael Hernandez MD Engineering Coordinator: NONE Type of Anesthesia: IV Sedation Pre-Operative Diagnosis: Elevated bilirubin, jaundice Operative Findings: US showed unremarkable liver. Small hypodense lesions throughout the liver consistent with finding on recent CT scan. Post-Operative Diagnosis: Elevated bilirubin, jaundice Operation Performed: US guided left liver biopsy. Biopsy tract embolized with gelfoam. Specimen/Specimens Removed: 18 gauge core x 3 Estimated Blood Loss: EBL {In ML}: 0 Blood Products Given: N/A Drains Used: No Drains Post-Op Condition: Good Date of Surgery/Procedure: 07/17/17 Time of Surgery/Procedure: 12:15
--- NOTE | 2017-07-17 13:29 | CP.PCM.PN ---
Subjective - Date & Time of Evaluation Date of Evaluation: 07/17/17 Time of Evaluation: 13:25 - Subjective Subjective: Progress note. Attending: Dr. Trivedi Pt seen and examined at bedside. No acute distress. Pt says he is still feeling weak with jaundice. Urine is not as dark as it was, says he was previously diagnosed with Gilbert's syndrome the last time he had this 15 years ago. No fevers, chills, vomiting, diarrhea, CT guided biopsy today. Objective - Vital Signs/Intake and Output Vital Signs (last 24 hours): Temp Pulse Resp BP Pulse Ox 98 F 87 20 136/77 97 07/17/17 10:16 07/17/17 10:16 07/17/17 10:16 07/17/17 10:16 07/17/17 10:16 Intake and Output: 07/17/17 07/17/17 06:59 18:59 Intake Total 1500 Output Total 500 Balance 1000 - Medications Medications: Current Medications Lactated Ringer's (Lactated Ringer's) 1,000 mls @ 75 mls/hr IV .[id number] GISELL Last Admin: 07/17/17 03:55 Dose: 75 mls/hr - Labs Labs: 07/17/17 07:04 07/17/17 07:04 PT 11.7 SECONDS (9.7-12.2) 07/17/17 07:04 INR 1.0 07/17/17 07:04 APTT 35 SECONDS (21-34) H 07/13/17 20:53 - Constitutional Appears: Non-toxic, No Acute Distress - Head Exam Head Exam: ATRAUMATIC, NORMAL INSPECTION, NORMOCEPHALIC - Eye Exam Eye Exam: Scleral icterus - Neck Exam Neck Exam: Full ROM, Normal Inspection - Respiratory Exam Respiratory Exam: NORMAL BREATHING PATTERN. absent: Respiratory Distress - Cardiovascular Exam Cardiovascular Exam: +S1, +S2 - GI/Abdominal Exam GI & Abdominal Exam: Soft, Normal Bowel Sounds. absent: Tenderness Additional comments: Positive jaundice - Extremities Exam Extremities Exam: Full ROM, Normal Inspection - Neurological Exam Neurological Exam: Alert, Awake, Oriented x3 - Psychiatric Exam Psychiatric exam: Normal Affect, Normal Mood - Skin Skin Exam: Dry, Intact, Warm. absent: Normal Color Assessment and Plan - Assessment and Plan (Free Text) Assessment: This is a 56 yo male with hx of chronic back pain and Gilbert's syndrome presenting with weakness and painless jaundice 1. Jaundice/cholestasis -etiology unclear -sx consulted. No surgical intervention at this time. -differential broad>>> included lymphoma vs autoimmune process -GI consult. recs appreciated. -s/p EUS: no abnormalities -cont LR 75 cc/hr -UA shows 2 plus bilirubin -EBV pending -alpha 1 anti pending -CXR negative -hepatitis panel negative -ct shows inguinal hernia, hypodense lesion liver, retroperitoneal lymphadenopathy -cultures negative -today IR lymph node biopsy 2. GI/DVT ppx -protonix daily -SCDs discussed with Dr. Trivedi
--- NOTE | 2017-07-17 14:13 | US ---
PROCEDURE: Date of procedure: 07/17/2017 Procedure: 1. Ultrasound-guided core liver biopsy, CPT 55923 2. Ultrasound guidance for biopsy, [id number] Medications: The patient is sedated by the anesthesiologist. HISTORY: Elevated bilirubin, jaundice TECHNIQUE: Following informed consent and procedure time-out, the patient was placed supine on bed and limited ultrasound showed a normal appearing left hepatic lobe. After patient abdomen was prepped and draped in the usual sterile fashion and the skin was anesthetized with 2% lidocaine, an 18 gauge core needle was advanced percutaneously under direct ultrasound guidance into the left hepatic lobe. Upon confirmation of needle position, three 18 gauge core specimens were obtained and sent for routine pathology. The biopsy to tract was then embolized with Gelfoam. A post biopsy ultrasound showed no hematoma. A dressing was applied. IMPRESSION: Ultrasound-guided core biopsy left hepatic lobe. There were no immediate complications.
[2017-07-17 16:23] VITALS: BP 102/74; PULSE 100; TEMP 98.2; O2SAT 95
[2017-07-18 13:11] LABS: EPSTEIN-BARR VCA AB IGM <36.00 U/mL
== END 2017-07-17 18:30 | disposition home or self-care (01) | DRG 442 ==
LOC: C.ER 18:59 → C.3T 22:36
PROVIDERS: ADMIT Internal Medicine Nephrology; ATTEND Internal Medicine Nephrology
PROC: 0DJ08ZZ Inspection of Upper Intestinal Tract, Via Natural or Artificial Opening Endoscopic (ICD-10-PCS; 2017-07-14)
PROC: 3E0234Z Introduction of Serum, Toxoid and Vaccine into Muscle, Percutaneous Approach (ICD-10-PCS; principal; 2017-07-16)
PROC: 0FB23ZX Excision of Left Lobe Liver, Percutaneous Approach, Diagnostic (ICD-10-PCS; 2017-07-16)
DX: K76.89 Other specified diseases of liver (principal); R17 Unspecified jaundice; L29.9 Pruritus, unspecified; Z87.891 Personal history of nicotine dependence; Z23 Encounter for immunization